=== PATIENT | male | born 1960 | race Caucasian/White ===

== ENCOUNTER 2021-02-07 01:38 | Emergency (ER) | payer OTHER ==
[~2021-02-07] VITALS: Ht 172.7 cm; Wt 83.0 kg
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
[2021-02-07] MEDS ORDERED: LIDOCAINE 1% INJ 50 ML MDV IJ ONE (02:18)
--- NOTE | 2021-02-07 02:19 | NUR ---
EMT AT BEDSIDE FOR WOUND CARE.
[2021-02-07] MEDS ORDERED: AMOX/CLAVULANATE 875 MG TABLET ONE (03:27)
[2021-02-07] MEDS ORDERED: AMOX/CLAVULANATE 875 MG TABLET PO ONE (03:30)
[2021-02-07] MEDS ORDERED: AMOX-430 PO (05:20)
--- NOTE | 2021-02-07 07:19 | NUR ---
PT OK TO DISCHARGE HOME PER DR MORENO. Patient discharged to home in stable condition. Written and verbal after care instructions given. Patient verbalizes understanding of instruction.Patient is awake and alert to self, day, and place. PT ambulatory with a steady gait
[2021-02-07 07:20] VITALS: BP 124/62
== END 2021-02-07 07:20 | disposition home or self-care (01) ==
LOC: ER 01:42
DX: S02.2XXA Fracture of nasal bones, initial encounter for closed fracture (principal); S01.81XA Laceration without foreign body of other part of head, initial encounter; F10.129 Alcohol abuse with intoxication, unspecified; W19.XXXA Unspecified fall, initial encounter; Y93.89 Activity, other specified; Y92.89 Other specified places as the place of occurrence of the external cause; Y99.8 Other external cause status; Y90.9 Presence of alcohol in blood, level not specified
CPT/HCPCS: 12011; 70450; 70486; 72125; 99285; J3490